=== PATIENT | female | born 1990 | race Caucasian/White ===

== ENCOUNTER 2017-01-24 18:43 | Emergency (ER) | payer OTHER ==
[2017-01-24] MEDS ORDERED: SODIUM CHLORIDE 0.9% 1,000 ML IV ONE (19:01)
--- NOTE | 2017-01-24 19:36 | ED ---
Female Urogenital HPI - General Chief complaint: Vaginal Bleeding Stated complaint: possible miscarriage Time Seen by Provider: 01/24/17 19:01 Source: patient Mode of arrival: ambulatory Limitations: no limitations - History of Present Illness Initial comments: Patient is a female who currently believes she is approximately 11 weeks , she presents to the emergency department this evening for sudden onset of vaginal bleeding. Patient reports that she believes she is approximately 11 weeks , she has been unable to establish any OB care during this . She has not had an ultrasound yet. 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 Patient reports that this cramping persisted throughout the afternoon despite sitting and resting for the rest of her work day. She came home and took a warm bath which improved some of the cramping shortly after bathing she developed vaginal bleeding. Patient reports she has had persistent vaginal bleeding since approximately 5:30 PM this evening. She has not passed any clots or products of conception. Patient does report that she had a single miscarriage in her first , she believes she was approximately 6 weeks at that time. She did not require D&C. She subsequently had a healthy and delivered vaginally at full term. She does report that she had extensive tearing requiring internal and external suturing without delivery. - Related Data Home Medications Medication Instructions Recorded Confirmed Vit No.124/Iron/Folic 1 tab PO DAILY 10/30/14 01/24/17 [ Vitamin Tablet] Allergies Allergy/AdvReac Type Severity Reaction Status Date / Time No Known Allergies Allergy Verified 01/24/17 19:09 Review of Systems ROS Statement: Those systems with pertinent positive or pertinent negative responses have been documented in the HPI. ROS Other: All systems not noted in ROS Statement are negative. Constitutional: Denies: fever, chills Respiratory: Denies: cough, dyspnea Cardiovascular: Denies: chest pain, palpitations Endocrine: Denies: fatigue Gastrointestinal: Denies: nausea, vomiting Genitourinary: Reports: abnormal menses, other (SUPRAPUBIC CRAMPING, VAGINAL BLEEDING). Denies: urgency, dysuria Musculoskeletal: Denies: back pain Skin: Denies: rash, lesions Neurological: Denies: headache, weakness Psychiatric: Reports: anxiety (anxious about possible miscarriage) Past Medical History Past Medical History: No Reported History History of Any Multi-Drug Resistant Organisms: None Reported Past Surgical History: Appendectomy Past Anesthesia/Blood Transfusion Reactions: No Reported Reaction Past Psychological History: No Psychological Hx Reported Smoking Status: Never smoker Past Alcohol Use History: None Reported Past Drug Use History: None Reported - Past Family History Mother Family Medical History: Hypertension General Exam Limitations: no limitations General appearance: alert, anxious Head exam: Present: atraumatic, normocephalic, normal inspection Eye exam: Present: normal appearance, PERRL, EOMI. Absent: scleral icterus, conjunctival injection, periorbital swelling ENT exam: Present: normal exam Neck exam: Present: normal inspection Respiratory exam: Present: normal lung sounds bilaterally. Absent: respiratory distress Cardiovascular Exam: Present: regular rate, normal rhythm GI/Abdominal exam: Present: soft. Absent: distended, tenderness, guarding, rebound, rigid Rectal exam: Present: deferred External exam: Present: normal external exam Speculum exam: Present: vaginal bleeding. Absent: vaginal discharge, cervical discharge, tissue, laceration By manual exam: Present: uterine enlargement. Absent: cervical motion tenderness Extremities exam: Present: normal inspection, full ROM, normal capillary refill. Absent: tenderness, pedal edema, joint swelling, calf tenderness Back exam: Present: normal inspection Neurological exam: Present: alert, oriented X3 Psychiatric exam: Present: anxious Skin exam: Present: warm, dry Course Vital Signs 01/24/17 18:49 Temperature 98.5 F Pulse Rate 84 Respiratory 17 Rate Blood Pressure 131/60 O2 Sat by Pulse 100 Oximetry Medical Decision Making - Medical Decision Making Patient was seen and evaluated Vital signs were reviewed History is obtained from the patient Pelvic exam reveals trickling of dark blood with no clots from the cervical os. Cervical os is closed. There is scarring on the cervix consistent with patient's history of requiring extensive repair after vaginal delivery. Labs reveal a hemoglobin of 12.2, blood type is A+ there is no indication for RhoGAM ultrasound reveals a single intrauterine to station at approximately 8 weeks and 4 days, a heart rate of 181 is noted Labs and ultrasound results were discussed with the patient. Patient reports that she has had no further bleeding since the pelvic exam. She reports that her cramping is completely subsided. Patient reports feeling definitely improved after being reassured by her ultrasound. All questions pertaining to care were answered to the best of my ability, patient was advised that bleeding in early does increase the risk of miscarriage however identification of a heart rate is 80 reassuring sign. Patient expressed relief and stated that she will follow up with OB before the end of the week. Patient was advised to return the emergency Department should she develop any worsening crampy abdominal pain or vaginal bleeding. All should she expresses any vaginal bleeding that fills greater than one pad per hour, is associated with any lightheadedness, shortness breath chest pain appealing pale or any signs or symptoms she finds concerning. Patient mother bedside expressed understanding and agreement with the plan for discharge home. - Lab Data Result diagrams: 01/24/17 19:53 Lab Results 01/24/17 01/24/17 01/24/17 Range/Units 19:53 19:53 19:53 WBC 12.1 H (3.8-10.6) k/uL RBC 4.07 (3.80-5.40) m/uL Hgb 12.6 (11.4-16.0) gm/dL Hct 36.1 (34.0-46.0) % MCV 88.6 (80.0-100.0) fL MCH 30.9 (25.0-35.0) pg MCHC 34.9 (31.0-37.0) g/dL RDW 13.0 (11.5-15.5) % Plt Count 267 (150-450) k/uL Neutrophils % 67 % Lymphocytes % 26 % Monocytes % 4 % Eosinophils % 1 % Basophils % 1 % Neutrophils # 8.1 H (1.3-7.7) k/uL Lymphocytes # 3.2 (1.0-4.8) k/uL Monocytes # 0.5 (0-1.0) k/uL Eosinophils # 0.2 (0-0.7) k/uL Basophils # 0.1 (0-0.2) k/uL Urine Color Yellow Urine Appearance Cloudy H (Clear) Urine pH 6.0 (5.0-8.0) Ur Specific [place] 1.002 (1.001-1.035) Urine Protein 1+ H (Negative) Urine Glucose (UA) Negative (Negative) Urine Ketones Negative (Negative) Urine Blood Large H (Negative) Urine Nitrite Negative (Negative) Urine Bilirubin Negative (Negative) Urine Urobilinogen <2.0 (<2.0) mg/dL Ur Leukocyte Esterase Negative (Negative) Urine RBC 60 H (0-5) /hpf Urine WBC 4 (0-5) /hpf Ur Squamous Epith Cells 1 (0-4) /hpf Amorphous Sediment Occasional H (None) /hpf Blood Type A Positive Blood Type Recheck No Disposition Clinical Impression: Threatened miscarriage in early Disposition: HOME SELF-CARE Condition: Good Instructions: Threatened Miscarriage (ED) Referrals: Melita John MD [Primary Care Provider] - 1-2 days Time of Disposition: 20:42
[2017-01-24 20:03] LABS: Basophils # (A) 0.1 k/uL (0-0.2); Basophils % (A) 1 %; CH 32.1; CHCM 36.4; Eosinophils # (A) 0.2 k/uL (0-0.7); Eosinophils % (A) 1 %; HCT 36.1 % (34.0-46.0); HDW 2.31; HGB 12.6 gm/dL (11.4-16.0); Luc # (Auto) 0.11; Luc % (Auto) 1; Lymphocytes # (A) 3.2 k/uL (1.0-4.8); Lymphocytes % (A) 26 %; MCH 30.9 pg (25.0-35.0); MCHC 34.9 g/dL (31.0-37.0); MCV 88.6 fL (80.0-100.0); Mean Platelet Volume 8.3; Monocytes # (A) 0.5 k/uL (0-1.0); Monocytes % (A) 4 %; Neutrophils # (A) 8.1 k/uL (1.3-7.7); Neutrophils % (A) 67 %; RBC 4.07 m/uL (3.80-5.40); WBC 12.1 k/uL (3.8-10.6); WBC (Perox) 13.08
[2017-01-24 20:06] LABS: Amorphous Sediment,Urine Occasional /hpf; Appearance,Urine Cloudy (Clear); Bilirubin,Urine Negative (Negative); Glucose,Urine (UA) Negative (Negative); Ketones,Urine Negative (Negative); Leukocyte Esterase,Urine Negative (Negative); Nitrite,Urine Negative (Negative); Particle Count 6638; Protein,Urine 1+ (Negative); RBC,Urine 60 /hpf (0-5); Specific Gravity,Urine 1.002 (1.001-1.035); Squamous Epithelial Cell,Urine 1 /hpf (0-4); UA Billing (MACRO vs. MICRO) MICRO; Urobilinogen,Urine <2.0 mg/dL (<2.0); WBC,Urine 4 /hpf (0-5)
--- NOTE | 2017-01-24 20:25 | US ---
EXAMINATION TYPE: US OB <= 14 wk fetus DATE OF EXAM: 01/24/2017 COMPARISON: NONE CLINICAL HISTORY: pain. Bleeding x 2 hours EXAM PERFORMED: Transabdominal (TA) EXAM MEASUREMENTS: GESTATIONAL AGE / DATING Physician Established: Not established Dates by LMP Unknown Dates by First Scan: This is first scan Dates by Current Scan for: (8 weeks/4 days) EDC: 09/01/2017 MATERNAL ANATOMY Uterus: 11.8 x 6.9 x 8.1 cml Right Ovary: 2.8 x 2.2 x 2.7 cm Post CDS / Adnexa: wnl Presence of free fluid: no Presence of corpus luteal cyst: no Presence of subchorionic bleed: no GESTATION / SURVEY CRL: 1.87cm (8 weeks/3 days) MSD: 3.4cm (8 weeks/4 days) Yolk Sac (normal less than 6mm): 0.46cm Heart Rate: 181 bpm Rhythm: Normal IUP: Viable IUP Date of LMP: Unknown Beta HcG (if available): Not available IMPRESSION: Viable IUP 8 wks 4 days ABI 09/01/2017 heart rate 181BPM
[2017-01-24 21:08] VITALS: BP 127/58; PULSE 86; RESP 18; TEMP 98.9
== END 2017-01-24 21:08 | disposition home or self-care (01) ==
LOC: EC 18:43
DX: O20.0 Threatened abortion (principal); Z90.49 Acquired absence of other specified parts of digestive tract; Z3A.08 8 weeks gestation of pregnancy; Z79.899 Other long term (current) drug therapy
CPT/HCPCS: 36415; 76801; 81001; 84702; 85025; 86900; 86901; 87086; 96360; 99284

== ENCOUNTER 2017-07-23 09:00 | Inpatient (IN) | payer BC ==
--- NOTE | 2017-07-23 09:20 | P.HPOB ---
History of Present Illness H&P Date: 07/23/17 Chief Complaint: IUP at 35-0/7 weeks, spontaneous rupture of membranes This is a very pleasant 26-year-old 3 para 1011 at 35-0/7 weeks with an estimated date of confinement of 422 that presents with spontaneous rupture of membranes. Patient states her water broke around 7 AM clear in nature. Patient has been milton irregularly throughout the last 2 weeks negative fibronectin was obtained due to these contractions and was negative in nature. She notes good movement and denies vaginal bleeding. On blood work she had a blood type of a positive, rubella immune, RPR nonreactive, hepatitis B surface antigen negative, HIV negative, GBS unknown. She did pass her GBS. Review of Systems Constitutional: Denies chills, Denies fatigue, Denies fever Respiratory: Denies cough, Denies dyspnea Gastrointestinal: Denies constipation, Denies diarrhea Genitourinary: Reports Past Medical History Past Medical History: No Reported History History of Any Multi-Drug Resistant Organisms: None Reported Past Surgical History: Appendectomy Past Anesthesia/Blood Transfusion Reactions: No Reported Reaction Past Psychological History: No Psychological Hx Reported Smoking Status: Never smoker Past Alcohol Use History: None Reported Past Drug Use History: None Reported - Past Family History Mother Family Medical History: Hypertension Medications and Allergies Home Medications Medication Instructions Recorded Confirmed Type Vit No.124/Iron/Folic 1 tab PO DAILY 10/30/14 01/24/17 History [ Vitamin Tablet] Allergies Allergy/AdvReac Type Severity Reaction Status Date / Time No Known Allergies Allergy Verified 01/24/17 19:09 Exam Osteopathic Statement: *. No significant issues noted on an osteopathic structural exam other than those noted in the History and Physical/Consult. - OBG Physical Exam Abdomen: Gravid uterus appropriate for gestational age Cervix: 3/50/-2 station, grossly ruptured with clear fluid Uterus: enlarged Assessment and Plan (1) premature rupture of membranes (PPROM) with onset of labor within 24 hours of rupture in third trimester, antepartum Current Visit: Yes Status: Acute Code(s): O42.013 - PRETRM PATRICA ROM, ONSET LABOR W/N 24 HOURS OF RUPT, THIRD TRI SNOMED Code(s): 13465546673544299 (2) GBS screening not performed Current Visit: Yes Status: Acute Code(s): LXW6185 - SNOMED Code(s): 584471333 Plan: Will admit to labor and delivery, IV antibiotic's for gestational age Will expectantly manage this patient for now just augmentation of labor may be needed in the near future. Plan was discussed with patient she understands and questions are answered. Gestational age is discussed with the patient and the patient's in the possible need for special care nursery. They stated understanding
[2017-07-23] MEDS ORDERED: TERBUTALINE 1 MG/ML VIAL SQ PRN (09:21)
[2017-07-23] MEDS ORDERED: AMPICILLIN 2,000 MG in SODIUM CHLORIDE 0.9% 100 ML IVPB STA (09:21)
[2017-07-23] MEDS ORDERED: OXYTOCIN 10 UNIT/ML 1 ML VIAL IM PRN (09:21)
[2017-07-23] MEDS ORDERED: CARBOPROST TROMETHAMINE 250 MCG/ML 1 ML AMP IM PRN (09:21)
[2017-07-23] MEDS ORDERED: LIDOCAINE 1% (PF) 10 MG/ML (30 ML SDV) SQ PRN (09:21)
[2017-07-23] MEDS ORDERED: METHYLERGONOVINE 0.2 MG/ML 1 ML AMP IM PRN (09:21)
[2017-07-23 09:27] VITALS: BMI 32.8
[2017-07-23] MEDS: LACTATED RINGERS 1,000 ML IV SCH ×2 (09:43→14:30)
[2017-07-23 10:14] LABS: Basophils # (A) 0.1 k/uL (0-0.2); Basophils % (A) 0 %; Eosinophils # (A) 0.2 k/uL (0-0.7); Eosinophils % (A) 1 %; HCT 35.6 % (34.0-46.0); Hyperchromasia Slight; Lymphocytes # (A) 2.9 k/uL (1.0-4.8); Lymphocytes % (A) 20 %; MCH 31.2 pg (25.0-35.0); MCHC 36.4 g/dL (31.0-37.0); MCV 85.6 fL (80.0-100.0); Mean Platelet Volume 7.7; Monocytes # (A) 0.5 k/uL (0-1.0); Monocytes % (A) 3 %; Neutrophils # (A) 10.9 k/uL (1.3-7.7); Neutrophils % (A) 74 %; Platelet Count 301 k/uL (150-450); RBC 4.16 m/uL (3.80-5.40); RDW 13.4 % (11.5-15.5); WBC 14.7 k/uL (3.8-10.6)
[2017-07-23] MEDS ORDERED: OXYTOCIN 20 UNITS/1000 ML NS 1,000 ML IV SCH ×2 (12:30→17:15)
[2017-07-23] MEDS ORDERED: AMPICILLIN 1,000 MG in SODIUM CHLORIDE 0.9% 50 ML IVPB SCH (13:21)
[2017-07-23] MEDS ORDERED: fentaNYL (PF) 50 MCG/ML 5 ML AMP ONE (15:17)
[2017-07-23] MEDS ORDERED: SODIUM CHLORIDE 0.9% 100 ML BAG ONE (15:17)
[2017-07-23] MEDS ORDERED: BUPIVACAINE (PF) 0.25% 30 ML VIAL ONE (15:17)
[2017-07-23] MEDS ORDERED: BUPIVACAINE (PF) 0.25% 25 ML, fentaNYL (PF) 200 MCG in SODIUM CHLORIDE 0.9% 71 ML EPIDURAL ONE (15:38)
[2017-07-23] MEDS ORDERED: HYDROCORTISONE 2.5% RECTAL CREAM 30 GM TUBE RECTAL PRN (17:09)
[2017-07-23] MEDS ORDERED: LANOLIN CREAM 5 GM TUBE TOPICAL PRN (17:09)
[2017-07-23] MEDS ORDERED: diphenhydrAMINE 50 MG CAP PO PRN (17:09)
[2017-07-23] MEDS ORDERED: SIMETHICONE 80 MG CHEWABLE PO PRN (17:09)
[2017-07-23] MEDS ORDERED: WITCH HAZEL 1 EACH MED..PAD TOPICAL PRN (17:09)
[2017-07-23] MEDS ORDERED: diphenhydrAMINE 25 MG CAP PO PRN (17:09)
[2017-07-23] MEDS ORDERED: IBUPROFEN 600 MG TAB PO PRN (17:09)
[2017-07-23] MEDS ORDERED: Acetaminophen-Codeine 300-30mg TAB PO PRN ×2 (17:09)
[2017-07-23] MEDS ORDERED: BENZOCAINE/MENTHOL SPRAY 1 GM/SPRAY AEROSOL TOPICAL PRN (17:09)
[2017-07-23] MEDS ORDERED: diphenhydrAMINE 50 MG/ML 1 ML VIAL IVP PRN ×2 (17:09)
--- NOTE | 2017-07-23 17:09 | P.PROBDLV ---
Vaginal Delivery Note - . Vaginal Delivery Note: This is a 26-year-old 3 para 1011 at 35-0/7 weeks that presented earlier with premature rupture of membranes, clear in nature. Patient progressed slowly through labor eventually needing Pitocin augmentation of labor. Patient eventually requested an epidural became complete and started pushing. Next Patient was noted to be complete, began pushing the head was then delivered, followed by the anterior shoulder followed by gentle upward traction to deliver the posterior shoulder the was then delivered and placed on the mammogram's abdomen. The cord was then doubly clamped and cut after a two- minute delayed cord clamp. girl was delivered at 1643, weight of 5 lbs. 15 oz, Apgars of 9 and 9 at one and 5 minutes respectively. The placenta was then delivered spontaneously intact with three-vessel cord. Afterwards the vaginal vault was inspected a small vaginal first-degree laceration was noted this was then injected with lidocaine and closed with 3-0 Rapide in the usual fashion. She did sustain bilateral labial lacerations that were hemostatic and no need for repair. Estimated blood loss was noted to be 200cc. Mother and infant were stable after delivery. was noted to be slightly grunting after delivery therefore she was taken to the nursery for observation.
[2017-07-23] MEDS: SENNOSIDES-DOCUSATE SODIUM 1 EACH TAB PO SCH (20:00)
[2017-07-23 21:00] VITALS: RESP 16
[2017-07-23] MEDS: ACETAMINOPHEN TAB 325 MG TAB PO PRN (22:46)
--- NOTE | 2017-07-24 08:16 | P.DS ---
Providers Date of admission: 07/23/17 09:00 Expected date of discharge: 07/24/17 Attending physician: Coby Veras Primary care physician: Stated None - Discharge Diagnosis(es) (1) premature rupture of membranes (PPROM) with onset of labor within 24 hours of rupture in third trimester, antepartum Current Visit: Yes Status: Acute (2) GBS screening not performed Current Visit: Yes Status: Acute (3) Vaginal delivery Current Visit: Yes Status: Acute Hospital Course: This is a very pleasant 26-year-old 3 para 1011 that presented to labor and delivery on 07/23 with complaints of rupture of membranes. Patient was confirmed to be spontaneously ruptured with clear fluid. She is 35-0/7 weeks with an estimated date of confinement of 08/27/2017. She made slow change through labor eventually Pitocin augmentation of labor was begun and she received an epidural for analgesia. She progressed to complete and had a spontaneous vaginal delivery of a viable female at 1643, weight of 5 lbs. 15 oz., Apgars of 9 and 9 at one and 5 minutes respectively. Patient's course has been uneventful. She is ambulating and voiding without difficulty. She is denying concerns. Her lochia is moderate today. She is attempting breast-feeding but with the infant being in special care nursery she is struggling at this time. Patient Condition at Discharge: Good Plan - Discharge Summary Discharge Rx Participant: Yes Follow up Appointment(s)/Referral(s): Coby Veras DO [Doctor of Osteopathic Medicine] - 4 Weeks Patient Instructions/Handouts: Vaginal Delivery (DC) Activity/Diet/Wound Care/Special Instructions: No intercourse or tub baths for 6 total weeks post . She does request an IUD I did discuss with her this will be placed at 8-10 weeks and she should abstain from intercourse until that time. Discharge Disposition: HOME SELF-CARE
[2017-07-24] MEDS: ACETAMINOPHEN TAB 325 MG TAB PO PRN (08:28)
[2017-07-24] MEDS: SENNOSIDES-DOCUSATE SODIUM 1 EACH TAB PO SCH (08:28)
[2017-07-24 08:59] VITALS: BP 129/76; PULSE 73; TEMP 97.5
== END 2017-07-24 14:30 | disposition home or self-care (01) | DRG 775 ==
LOC: 4FBP 09:00
PROVIDERS: ADMIT Obstetrics & Gynecology Obstetrics; ATTEND Obstetrics & Gynecology Obstetrics
PROC: 10E0XZZ Delivery of Products of Conception, External Approach (ICD-10-PCS; principal; 2017-07-23)
PROC: 3E0R3NZ Introduction of Analgesics, Hypnotics, Sedatives into Spinal Canal, Percutaneous Approach (ICD-10-PCS; principal; 2017-07-23)
PROC: 00HU33Z Insertion of Infusion Device into Spinal Canal, Percutaneous Approach (ICD-10-PCS; principal; 2017-07-23)
PROC: 0HQ9XZZ Repair Perineum Skin, External Approach (ICD-10-PCS; principal; 2017-07-23)
DX: O42.019 Preterm premature rupture of membranes, onset of labor within 24 hours of rupture, unspecified trimester (principal); O70.0 First degree perineal laceration during delivery; Z37.0 Single live birth; Z3A.35 35 weeks gestation of pregnancy
CPT/HCPCS: 85025; 86850; 86900; 86901; 88307

== ENCOUNTER → 2018-05-03 | Outpatient (CLI) | payer OTHER ==
--- NOTE | 2018-05-03 08:34 | US ---
EXAMINATION TYPE: US abdomen complete DATE OF EXAM: 05/03/2018 COMPARISON: NONE CLINICAL HISTORY: R10.11 Right Upper Quad Pain. RUQ pain, indigestion, history of gallstones EXAM MEASUREMENTS: Liver Length: 13.4 cm Gallbladder Wall: 0.5 cm CBD: 0.4 cm Spleen: 10.4 cm Right Kidney: 11.5 x 4.5 x 5.5 cm Left Kidney: 11.2 x 5.4 x 5.2 cm Technical limitations due to large amount of overlying bowel content Pancreas: Tail obscured by overlying bowel gas Liver: wnl Gallbladder: sludge with multiple stones noted, thickened GB wall Evidence for sonographic Veras's sign: no CBD: wnl Spleen: appears wnl Right Kidney: no evidence of hydronephrosis Left Kidney: no evidence of hydronephrosis Upper IVC: wnl Abd Aorta: wnl The liver is homogenous. The intrahepatic portion of the IVC and proximal abdominal aorta are within normal limits. Common bile duct is unremarkable. The visualized portions of the pancreas are homog enous. The spleen is unremarkable. Kidneys are symmetric and free of hydronephrosis. No renal lesi ons are seen. IMPRESSION: 1. Gallbladder sludge. 2. Gallbladder wall thickening. Common bile duct is of normal caliber.
== END | disposition home or self-care (01) ==
LOC: RADUSWWP 07:34
PROVIDERS: ATTEND Internal Medicine
DX: K82.8 Other specified diseases of gallbladder (principal)
CPT/HCPCS: 76700

== ENCOUNTER 2018-05-09 03:22 | Inpatient (IN) | payer OTHER ==
[2018-05-09] MEDS ORDERED: SODIUM CHLORIDE 0.9% 1,000 ML IV STA (04:40)
[2018-05-09] MEDS ORDERED: HYDROmorphone 0.5 MG/0.5 ML SYRINGE IVP STA (04:40)
[2018-05-09] MEDS ORDERED: ONDANSETRON 4 MG/2 ML VIAL IVP STA (04:40)
--- NOTE | 2018-05-09 04:44 | ED ---
Nausea/Vomiting/Diarrhea HPI - General Chief complaint: Nausea/Vomiting/Diarrhea Stated complaint: vomiting Time Seen by Provider: 05/09/18 04:31 Source: patient Mode of arrival: ambulatory Limitations: no limitations - History of Present Illness Initial comments: This patient is 27-year-old woman who presents to have evaluation for right upper quadrant abdominal pain, nausea and vomiting. The patient states she has been having right upper quadrant pains going back number weeks, and that she has had number of tests including ultrasound that showed reported thickening of the gallbladder wall, gallstones and sludge. The patient states that she is scheduled to see Dr. Eid, about possible gallbladder surgery. The patient states that last evening she had eaten some oatmeal and then shortly after that started having nausea, vomiting, abdominal pain. She states that she was not able to manage at home. She did try taking Tylenol and. She is not having any relief. She indicates pain is right upper quadrant, radiates to the back. It is constant and severe. She has not noted any relieving factors. It is worse if she presses there. MD complaint: nausea, vomiting, abdominal pain Onset/Timin -: hour(s) Description of Vomiting: food contents Associated Abdominal Pain: Yes Location: RUQ Radiation: other (Back) Severity: severe Quality: sharp Consistency: constant Improves with: none Worsens with: none Associated Symptoms: nausea/vomiting - Related Data Home Medications Medication Instructions Recorded Confirmed Acetaminophen [Tylenol] 500 mg PO Q4-6H PRN 05/09/18 05/09/18 Ibuprofen [Motrin] 600 mg PO Q8HR PRN 05/09/18 05/09/18 Allergies Allergy/AdvReac Type Severity Reaction Status Date / Time No Known Allergies Allergy Verified 05/09/18 07:44 Review of Systems ROS Statement: Those systems with pertinent positive or pertinent negative responses have been documented in the HPI. ROS Other: All systems not noted in ROS Statement are negative. Constitutional: Denies: fever, chills Respiratory: Denies: cough, dyspnea Cardiovascular: Denies: chest pain, palpitations, syncope Gastrointestinal: Reports: abdominal pain, nausea, vomiting. Denies: diarrhea, constipation Genitourinary: Denies: dysuria, hematuria, abnormal menses Musculoskeletal: Denies: back pain Skin: Denies: rash Neurological: Denies: headache Past Medical History Past Medical History: No Reported History History of Any Multi-Drug Resistant Organisms: None Reported Past Surgical History: Appendectomy Past Anesthesia/Blood Transfusion Reactions: No Reported Reaction Past Psychological History: No Psychological Hx Reported Smoking Status: Never smoker Past Alcohol Use History: None Reported Past Drug Use History: None Reported - Past Family History Mother Family Medical History: Hypertension General Exam Limitations: no limitations General appearance: alert, in no apparent distress Head exam: Present: atraumatic, normocephalic Eye exam: Present: normal appearance. Absent: scleral icterus, conjunctival injection ENT exam: Present: normal oropharynx Neck exam: Present: normal inspection Respiratory exam: Present: normal lung sounds bilaterally. Absent: respiratory distress, wheezes, rales, rhonchi, stridor Cardiovascular Exam: Present: regular rate, normal rhythm, normal heart sounds. Absent: systolic murmur, diastolic murmur, rubs, gallop GI/Abdominal exam: Present: soft, tenderness (Upper quadrant), guarding, hypoactive bowel sounds. Absent: distended, rebound, rigid, mass, pulsatile mass, hernia Extremities exam: Present: normal inspection, normal capillary refill. Absent: pedal edema, calf tenderness Back exam: Present: normal inspection. Absent: CVA tenderness (R), CVA tenderness (L) Neurological exam: Present: alert Skin exam: Present: warm, dry, intact, normal color. Absent: rash Course Vital Signs 05/09/18 03:43 Temperature 98.4 F Pulse Rate 59 L Respiratory 18 Rate Blood Pressure 121/75 O2 Sat by Pulse 100 Oximetry Medical Decision Making - Medical Decision Making Patient is 27-year-old woman who has been having intermittent biliary colic symptoms for some time now. Her outpatient ultrasound did show evidence of gallbladder disease, including a thickened wall, stones and sludge. She has lost far not seen a surgeon. Given the recurrence of symptoms, case discussed with surgery will admit the patient for symptom management and possible cholecystectomy. - Lab Data Result diagrams: 05/09/18 04:50 05/09/18 04:50 Lab Results 05/09/18 05/09/18 Range/Units 04:50 04:50 WBC 14.7 H (3.8-10.6) k/uL RBC 4.63 (3.80-5.40) m/uL Hgb 14.0 (11.4-16.0) gm/dL Hct 40.9 (34.0-46.0) % MCV 88.5 (80.0-100.0) fL MCH 30.3 (25.0-35.0) pg MCHC 34.2 (31.0-37.0) g/dL RDW 12.3 (11.5-15.5) % Plt Count 211 (150-450) k/uL Neutrophils % 89 % Lymphocytes % 8 % Monocytes % 2 % Eosinophils % 0 % Basophils % 0 % Neutrophils # 13.1 H (1.3-7.7) k/uL Lymphocytes # 1.2 (1.0-4.8) k/uL Monocytes # 0.3 (0-1.0) k/uL Eosinophils # 0.0 (0-0.7) k/uL Basophils # 0.0 (0-0.2) k/uL Sodium 140 (137-145) mmol/L Potassium 4.3 (3.5-5.1) mmol/L Chloride 107 (98-107) mmol/L Carbon Dioxide 25 (22-30) mmol/L Anion Gap 8 mmol/L BUN 13 (7-17) mg/dL Creatinine 0.51 L (0.52-1.04) mg/dL Est GFR (CKD-EPI)AfAm >90 (>60 ml/min/1.73 sqM) Est GFR (CKD-EPI)NonAf >90 (>60 ml/min/1.73 sqM) Glucose 131 H (74-99) mg/dL Calcium 9.4 (8.4-10.2) mg/dL Total Bilirubin 0.4 (0.2-1.3) mg/dL AST 21 (14-36) U/L ALT 25 (9-52) U/L Alkaline Phosphatase 41 (38-126) U/L Total Protein 7.3 (6.3-8.2) g/dL Albumin 4.7 (3.5-5.0) g/dL Amylase <30 L (30-110) U/L Lipase 43 (23-300) U/L Disposition Clinical Impression: Symptomatic cholelithiasis, Abdominal pain Disposition: ADMITTED IP TO THIS [facility] Condition: Fair
[2018-05-09 05:02] LABS: Basophils % (A) 0 %; Eosinophils % (A) 0 %; HCT 40.9 % (34.0-46.0); Lymphocytes # (A) 1.2 k/uL (1.0-4.8); Lymphocytes % (A) 8 %; MCH 30.3 pg (25.0-35.0); MCHC 34.2 g/dL (31.0-37.0); MCV 88.5 fL (80.0-100.0); Mean Platelet Volume 8.1; Monocytes # (A) 0.3 k/uL (0-1.0); Monocytes % (A) 2 %; Neutrophils # (A) 13.1 k/uL (1.3-7.7); Neutrophils % (A) 89 %; Platelet Count 211 k/uL (150-450); RBC 4.63 m/uL (3.80-5.40); RDW 12.3 % (11.5-15.5); WBC 14.7 k/uL (3.8-10.6)
[2018-05-09 05:13] LABS: ALT 25 U/L (9-52); AST 21 U/L (14-36); Albumin 4.7 g/dL (3.5-5.0); Alkaline Phosphatase 41 U/L (38-126); Anion Gap 8 mmol/L; Blood Urea Nitrogen 13 mg/dL (7-17); Calcium 9.4 mg/dL (8.4-10.2); Carbon Dioxide 25 mmol/L (22-30); Chloride 107 mmol/L (98-107); Glucose 131 mg/dL (74-99); Lipase 43 U/L (23-300); Potassium 4.3 mmol/L (3.5-5.1); Sodium 140 mmol/L (137-145); Total Bilirubin 0.4 mg/dL (0.2-1.3); Total Protein 7.3 g/dL (6.3-8.2)
[2018-05-09 05:16] LABS: Amylase <30 U/L (30-110)
[2018-05-09] MEDS ORDERED: HYDROmorphone 0.5 MG/0.5 ML SYRINGE IVP PRN ×2 (06:33→19:02)
[2018-05-09] MEDS ORDERED: NALOXONE 0.4 MG/ML 1 ML VIAL IV PRN (06:33)
[2018-05-09] MEDS ORDERED: ONDANSETRON 4 MG/2 ML VIAL IVP PRN (06:33)
[2018-05-09] MEDS ORDERED: PIPERACILLIN-TAZOBACTAM 3.375 GM in SODIUM CHLORIDE 0.9% 100 ML IVPB STA (06:35)
[2018-05-09 08:30] LABS: Appearance,Urine Clear (Clear); Bilirubin,Urine Negative (Negative); Blood,Urine Negative (Negative); Color,Urine Yellow; Glucose,Urine (UA) Negative (Negative); Ketones,Urine 2+ (Negative); Leukocyte Esterase,Urine Negative (Negative); Nitrite,Urine Negative (Negative); PH, Urine 7.5 (5.0-8.0); Protein,Urine Negative (Negative); Specific Gravity,Urine 1.014 (1.001-1.035)
[2018-05-09] MEDS: PANTOPRAZOLE 40 MG/10 ML VIAL IV SCH (10:19)
[2018-05-09 10:25] VITALS: BMI 30.2
[2018-05-09] MEDS ORDERED: HYDROmorphone 1 MG/ML 1 ML SYRINGE IVP PRN (10:47)
--- NOTE | 2018-05-09 10:52 | P.GSHP ---
History of Present Illness H&P Date: 05/09/18 The patient's a 27-year-old female who presented with worsening right upper quadrant pain. She had had some gallbladder colic when she was 2 years ago. Around she began to have recurrent pain daily. She had ultrasound done on May 03 showing sludge, gallstones and some thickening of the gallbladder wall. Denies jaundice, acholic stool, blood in the stool or dark tarry stool. Denies fevers or chills. Yesterday evening she had some oatmeal and started developing severe nausea and vomiting afterwards along with pain. The pain is persisting in the right upper quadrant radiating through to the back. She's getting 0.5 mg of Dilaudid which "takes the edge off "but doesn't totally relieve the pain - Review of Systems All systems: negative Past Medical History Past Medical History: No Reported History History of Any Multi-Drug Resistant Organisms: None Reported Past Surgical History: Appendectomy Past Anesthesia/Blood Transfusion Reactions: No Reported Reaction Past Psychological History: No Psychological Hx Reported Smoking Status: Current every day smoker Past Alcohol Use History: None Reported Past Drug Use History: None Reported - Past Family History Mother Family Medical History: Hypertension Medications and Allergies Home Medications Medication Instructions Recorded Confirmed Type Acetaminophen [Tylenol] 500 mg PO Q4-6H PRN 05/09/18 05/09/18 History Ibuprofen [Motrin] 600 mg PO Q8HR PRN 05/09/18 05/09/18 History Allergies Allergy/AdvReac Type Severity Reaction Status Date / Time No Known Allergies Allergy Verified 05/09/18 07:44 Surgical - Exam Osteopathic Statement: *. No significant issues noted on an osteopathic structural exam other than those noted in the History and Physical/Consult. Vital Signs Temp Pulse Resp BP Pulse Ox 98.4 F 59 L 18 121/75 100 05/09/18 03:43 05/09/18 03:43 05/09/18 03:43 05/09/18 03:43 05/09/18 03:43 - General Appears uncomfortable well developed, well nourished - Eyes normal ocular movement - ENT normal mucosa - Neck trachea midline - Respiratory normal respiratory effort, clear to auscultation - Cardiovascular Rhythm: regular - Abdomen Abdomen: soft, tender (Right upper quadrant), guarding (Voluntary), no rebound, no distended Hernia: no umbilical - Psychiatric oriented to time, oriented to person, oriented to place, speech is normal, memory intact Results - Labs 05/09/18 04:50 05/09/18 04:50 Abnormal Lab Results - Last 24 Hours (Table) 05/09/18 05/09/18 05/09/18 Range/Units 04:50 04:50 07:35 WBC 14.7 H (3.8-10.6) k/uL Neutrophils # 13.1 H (1.3-7.7) k/uL Creatinine 0.51 L (0.52-1.04) mg/dL Glucose 131 H (74-99) mg/dL Amylase <30 L (30-110) U/L Urine Ketones 2+ H (Negative) Diabetes panel 05/09/18 Range/Units 04:50 Sodium 140 (137-145) mmol/L Potassium 4.3 (3.5-5.1) mmol/L Chloride 107 (98-107) mmol/L Carbon Dioxide 25 (22-30) mmol/L BUN 13 (7-17) mg/dL Creatinine 0.51 L (0.52-1.04) mg/dL Glucose 131 H (74-99) mg/dL Calcium 9.4 (8.4-10.2) mg/dL AST 21 (14-36) U/L ALT 25 (9-52) U/L Alkaline Phosphatase 41 (38-126) U/L Total Protein 7.3 (6.3-8.2) g/dL Albumin 4.7 (3.5-5.0) g/dL Calcium panel 05/09/18 Range/Units 04:50 Calcium 9.4 (8.4-10.2) mg/dL Albumin 4.7 (3.5-5.0) g/dL Pituitary panel 05/09/18 Range/Units 04:50 Sodium 140 (137-145) mmol/L Potassium 4.3 (3.5-5.1) mmol/L Chloride 107 (98-107) mmol/L Carbon Dioxide 25 (22-30) mmol/L BUN 13 (7-17) mg/dL Creatinine 0.51 L (0.52-1.04) mg/dL Glucose 131 H (74-99) mg/dL Calcium 9.4 (8.4-10.2) mg/dL Adrenal panel 05/09/18 Range/Units 04:50 Sodium 140 (137-145) mmol/L Potassium 4.3 (3.5-5.1) mmol/L Chloride 107 (98-107) mmol/L Carbon Dioxide 25 (22-30) mmol/L BUN 13 (7-17) mg/dL Creatinine 0.51 L (0.52-1.04) mg/dL Glucose 131 H (74-99) mg/dL Calcium 9.4 (8.4-10.2) mg/dL Total Bilirubin 0.4 (0.2-1.3) mg/dL AST 21 (14-36) U/L ALT 25 (9-52) U/L Alkaline Phosphatase 41 (38-126) U/L Total Protein 7.3 (6.3-8.2) g/dL Albumin 4.7 (3.5-5.0) g/dL Assessment and Plan (1) Cholecystitis Current Visit: Yes Status: Acute Code(s): K81.9 - CHOLECYSTITIS, UNSPECIFIED SNOMED Code(s): 46551727 (2) Symptomatic cholelithiasis Current Visit: Yes Status: Acute Code(s): K80.20 - CALCULUS OF GALLBLADDER W /O CHOLECYSTITIS W/O OBSTRUCTION SNOMED Code(s): 788176638 Plan: She is still having significant abdominal pain which is probably on the basis of a cystic duct obstruction. I recommended laparoscopic cholecystectomy possible open. The procedure risks and complications were discussed. Questions were encouraged and answered. We'll adjust her pain medication and proceed with surgery today.
[2018-05-09] MEDS: KETOROLAC 30 MG/ML 1 ML VIAL IVP SCH ×2 (12:45→18:05)
[2018-05-09] MEDS ORDERED: IV FLUID CONTINUATION 1,000 ML IV ONE (16:51)
[2018-05-09] MEDS ORDERED: NEOSTIGMINE 1 MG/ML 10 ML VIAL ONE (17:56)
[2018-05-09] MEDS ORDERED: PROPOFOL 10 MG/ML 20 ML VIAL IV ONE (17:56)
[2018-05-09] MEDS ORDERED: SUCCINYLCHOLINE CHLORIDE 100 MG/5 ML SYR IV ONE (17:56)
[2018-05-09] MEDS ORDERED: fentaNYL (PF) 50 MCG/ML 2 ML AMP ONE (17:56)
[2018-05-09] MEDS ORDERED: ePHEDrine SULFATE/0.9% NACL/PF 50 MG/5 ML SYRINGE IV ONE (17:56)
[2018-05-09] MEDS ORDERED: GLYCOPYRROLATE 0.2 MG/ML 2 ML VIAL ONE (17:56)
[2018-05-09] MEDS ORDERED: MIDAZOLAM 2 MG/2 ML VIAL ONE (17:56)
[2018-05-09] MEDS ORDERED: LIDOCAINE 1% INJ 10MG/ML (20 ML MDV) ONE (17:56)
[2018-05-09] MEDS ORDERED: LACTATED RINGERS 1,000 ML IV ONE (18:10)
[2018-05-09] MEDS ORDERED: BUPIVACAIN-EPI 0.25%-1:200,000 30 ML VIAL SQ ONE ×2 (18:14)
--- NOTE | 2018-05-09 19:00 | P.OP ---
Date of Procedure: 05/09/18 Preoperative Diagnosis: Cholelithiasis and cholecystitis Postoperative Diagnosis: Same Procedure(s) Performed: Laparoscopic cholecystectomy Anesthesia: PARVEEN Surgeon: Khadra García Estimated Blood Loss (ml): 50 Pathology: other (Gallbladder) Condition: stable Disposition: PACU Operative Findings: The patient had evidence of acute on chronic cholecystitis with edematous gallbladder with wall thickening and omental adhesions. Description of Procedure: The patient was taken the operative suite where she is prepped and draped in usual sterile manner under general endotracheal anesthetic. An infraumbilical incision was made an optical trochars placed in the abdominal cavity. Pneumoperitoneum was established with CO2 gas. Sites are chosen for accessory trochars needs are placed through small skin incisions. The abdominal and pelvic contents are examined with findings as described above. The fundus of the gallbladder is grasped and retracted towards the anterior abdominal wall. The omentum was peeled off the surface of the gallbladder. Webster's pouch is then I identified. Its grasped and retracted laterally. The cystic artery and cystic duct are dissected free. They're triply clipped and cut. The cystic duct stump was secured with 0 PDS Endoloop. The gallbladder is then dissected free from the liver bed using cautery. The gallbladder is placed into a specimen retrieval bag. The liver bed is reexamined and noted to be hemostatic. The excess irrigant is suctioned out. The pneumoperitoneum was released. The trochars were removed. The skin and fascia at the umbilicus was extended slightly to allow for removal of the gallbladder. The fascia at the umbilicus was closed with 0 Vicryl. The skin incisions were closed with 4-0 Vicryl in a subcuticular manner. Steri-Strips and dressings were applied. She tolerated the procedure without difficulty and was taken recovery room in satisfactory condition. According to or personnel, all counts are correct.
[2018-05-09] MEDS ORDERED: HYDROcodone/APAP 5-325MG 1 EACH TAB PO PRN ×2 (19:01)
[2018-05-09] MEDS: HYDROmorphone 1 MG/ML 1 ML SYRINGE IVP ONE ×2 (19:30→19:42)
[2018-05-09] MEDS ORDERED: ONDANSETRON 4 MG/2 ML VIAL IVP ONE (19:41)
[2018-05-10] MEDS: KETOROLAC 30 MG/ML 1 ML VIAL IVP SCH ×2 (00:14→06:29)
[2018-05-10 01:31] VITALS: RESP 16
[2018-05-10 07:43] VITALS: BP 112/72; PULSE 58; TEMP 98
[2018-05-10] MEDS: PANTOPRAZOLE 40 MG/10 ML VIAL IV SCH (09:15)
--- NOTE | 2018-05-10 10:31 | P.DS ---
Providers Date of admission: 05/09/18 06:39 Expected date of discharge: 05/10/18 Attending physician: Khadra García Primary care physician: Melita John - Discharge Diagnosis(es) (1) Cholecystitis Current Visit: Yes Status: Acute (2) Symptomatic cholelithiasis Current Visit: Yes Status: Acute Hospital Course: The patient presented with persistent pain since . An outpatient ultrasound was done on May 03 showing cholelithiasis and gallbladder wall thickening. The pain became significantly worse and she had nausea and vomitingSocially presented to the ER. She was evaluated and admitted. She was taken the OR where she is found to have acute on chronic cholecystitis with cholelithiasis. By postop day 1 she was feeling significantly better. The pain was resolved. No nausea or vomiting. She was tolerating a diet Patient Condition at Discharge: Good Plan - Discharge Summary Discharge Rx Participant: No New Discharge Prescriptions: New HYDROcodone/APAP 5-325MG [[place] 5-325] 1 - 2 tab PO Q6HR PRN #20 tab PRN Reason: Pain No Action Ibuprofen [Motrin] 600 mg PO Q8HR PRN PRN Reason: Pain Acetaminophen [Tylenol] 500 mg PO Q4-6H PRN PRN Reason: Pain Discharge Medication List Acetaminophen [Tylenol] 500 mg PO Q4-6H PRN 05/09/18 [History] Ibuprofen [Motrin] 600 mg PO Q8HR PRN 05/09/18 [History] HYDROcodone/APAP 5-325MG [[place] 5-325] 1 - 2 tab PO Q6HR PRN #20 tab 05/10/18 [ Rx] Follow up Appointment(s)/Referral(s): Melita John MD [Primary Care Provider] - 1-2 days Khadra García DO [Doctor of Osteopathic Medicine] - 2 Weeks Activity/Diet/Wound Care/Special Instructions: Keeps Band-Aids on until Monday. Then they may be removed and you may shower. No tub bath for 1 week. Low-fat diet. Expect some bruising by the bellybutton incision. Call if you develop fevers, chills, nausea, vomiting, concerns for wound infection Discharge Disposition: HOME SELF-CARE
== END 2018-05-10 11:56 | disposition home or self-care (01) | DRG 419 ==
LOC: EC 03:22 → 4SSUR 06:26 → OBSVTOIN 06:39
PROVIDERS: ADMIT Surgery; ATTEND Surgery
PROC: 0FT44ZZ Resection of Gallbladder, Percutaneous Endoscopic Approach (ICD-10-PCS; principal; 2018-05-09 19:40)
DX: K80.12 Calculus of gallbladder with acute and chronic cholecystitis without obstruction (principal); F17.210 Nicotine dependence, cigarettes, uncomplicated; Z90.49 Acquired absence of other specified parts of digestive tract; Z82.49 Family history of ischemic heart disease and other diseases of the circulatory system
CPT/HCPCS: 36415; 80053; 81003; 81025; 82150; 83690; 85025; 88304; 96361; 96365; 96375; 99285

== ENCOUNTER → 2023-12-08 | Outpatient (CLI) | payer BC ==
--- NOTE | 2023-12-08 15:41 | US ---
EXAMINATION TYPE: US transvaginal DATE OF EXAM: 12/08/2023 COMPARISON: NONE CLINICAL INDICATION: Female, 33 years old with history of N92.1 EXCESSIVE AND FREQUENT MENSTRUATION W ITH IRR; irregular menses since of second child TECHNIQUE: Transvaginal (TV). Transvaginal sonographic images were medically necessary to better as sess the following anatomy: Endometrium Date of LMP: 11/11/23 EXAM MEASUREMENTS: Uterus: 9.1x4.9x6.4 cm Endometrial Stripe: 0.8 cm Right Ovary: 2.2x2.3x2.9 cm Left Ovary: 2.9x2.5x2.3 cm 1. Uterus: Anteverted wnl 2. Endometrium: wnl 3. Right Ovary: wnl 4. Left Ovary: wnl 5. Bilateral Adnexa: Obscured by overlying bowel gas 6. Posterior cul-de-sac: wnl Unremarkable anteverted uterus. Endometrium is within normal. Both ovaries demonstrate follicular mercedes nges. No free fluid. IMPRESSION: No ultrasound evidence for an acute process.
== END | disposition home or self-care (01) ==
LOC: RADUSWWP 15:01
PROVIDERS: ATTEND Internal Medicine
DX: N92.1 Excessive and frequent menstruation with irregular cycle (principal)
CPT/HCPCS: 76830

== ENCOUNTER 2024-09-13 16:41 | Emergency (ER) | payer BC ==
[2024-09-13 17:11] VITALS: TEMP 98.4
[2024-09-13] MEDS: IBUPROFEN 800 MG TAB PO STA (17:49)
[2024-09-13] MEDS: ACETAMINOPHEN TAB 500 MG TAB PO STA (17:49)
--- NOTE | 2024-09-13 17:59 | ED ---
Fall HPI - General Chief Complaint: Fall Stated Complaint: left leg pain Time Seen by Provider: 09/13/24 17:17 Source: patient, RN notes reviewed Mode of arrival: wheelchair Limitations: no limitations - History of Present Illness Initial Comments: This is a 33-year-old female who presents to the emergency department for a fall. Patient slipped and fell down 3 steps earlier today and injured her left leg. States that she felt something break in her femur area and she has since had pain going down the leg. States that she has been unable to move her toes or put pressure on the leg since she fell. Denies hitting her head or sustaining any other injuries. MD Complaint: fall - Related Data Home Medications Medication Instructions Recorded Confirmed Acetaminophen [Tylenol] 500 mg PO Q4-6H PRN 05/09/18 05/09/18 Ibuprofen [Motrin] 600 mg PO Q8HR PRN 05/09/18 05/09/18 Previous Rx's Medication Instructions Recorded HYDROcodone/APAP 5-325MG [[place] 1 - 2 tab PO Q6HR PRN #20 tab 05/10/18 5-325] Allergies Allergy/AdvReac Type Severity Reaction Status Date / Time No Known Allergies Allergy Verified 09/13/24 17:11 Review of Systems ROS Statement: Those systems with pertinent positive or pertinent negative responses have been documented in the HPI. ROS Other: All systems not noted in ROS Statement are negative. Past Medical History Past Medical History: No Reported History History of Any Multi-Drug Resistant Organisms: None Reported Past Surgical History: Appendectomy, Cholecystectomy Past Anesthesia/Blood Transfusion Reactions: No Reported Reaction Past Psychological History: No Psychological Hx Reported Smoking Status: Current every day smoker Past Alcohol Use History: None Reported Past Drug Use History: None Reported - Past Family History Mother Family Medical History: Hypertension General Exam Limitations: no limitations General appearance: alert, in no apparent distress Head exam: Present: atraumatic, normocephalic, normal inspection Respiratory exam: Present: normal lung sounds bilaterally. Absent: respiratory distress, wheezes, rales, rhonchi, stridor Cardiovascular Exam: Present: regular rate, normal rhythm Extremities exam: Present: other (Tenderness to palpation of the left femur. Range of motion limited by pain. 2+ DP and PT pulses) Neurological exam: Present: alert, oriented X3, CN II-XII intact Psychiatric exam: Present: normal affect, normal mood Skin exam: Present: warm, dry, intact, normal color. Absent: rash Course Vital Signs 09/13/24 09/13/24 17:08 18:50 Temperature 98.4 F Pulse Rate 91 94 Respiratory 16 18 Rate Blood Pressure 132/84 131/80 O2 Sat by Pulse 100 100 Oximetry Medical Decision Making - Medical Decision Making This is a 33-year-old female who presents to the emergency department for left leg pain. Was pt. sent in by a medical professional or institution? @ -No Did you speak to anyone other than the patient for history? @ -No Did you review nursing and triage notes? @ -Yes, and I agree, it is accurate with regards to the patient's symptoms. Were old charts reviewed? @ -No Differential Diagnosis? @ -Differential Musculoskeletal Muscular strain, contusion, ligament sprain, fracture, arthritis, septic arthritis, bursitis, cellulitis, muscle spasm, nerve compression, DVT, arterial occlusion, herpes zoster, electrolyte abnormality, tumor.... This is not meant to be in all inclusive list EKG interpreted by me (3pts min.)? @ -Not obtained X-rays interpreted by me (1pt min.)? @ -X-ray of the pelvis and left femur obtained. My interpretation of both images identifies no acute fractures. CT interpreted by me (1pt min.)? @ -Not obtained U/S interpreted by me (1pt. min.)? @ -Not obtained What testing was considered but not performed? (CT, X-rays, U/S, labs)? Why? @ -None What meds were considered but not given? Why? @ -None Did you discuss the management of the patient with other professionals? @ -No Did you reconcile home meds? @ -No Was smoking cessation discussed for >3mins.? @ -I discussed smoking cessation for greater than 3 minutes. The risk of smoking were discussed with the patient including but not limited to risks of cancer, stroke, coronary artery disease and COPD. Also discussed with patient were multiple methods of quitting smoking. Lastly we discussed the financial cost of smoking. Was critical care preformed (if so, how long)? @ -No Were there social determinants of health that impacted care today? How? (Homelessness, low income, unemployed, alcoholism, drug addiction, transportation, low edu. Level, literacy, decrease access to med. care, usp, rehab)? @ -No Was there de-escalation of care discussed even if they declined? (Discuss DNR or withdrawal of care, Hospice)? @ -No What co-morbidities impacted this encounter? (DM, HTN, Smoking, COPD, CAD, Cancer, CVA, Hep., AIDS, mental health diagnosis, sleep apnea, morbid obesity)? @ -Smoking Was patient admitted / discharged? @ -Discharged. X-ray of the left femur and pelvis obtained revealing no acute process. Ibuprofen and Tylenol administered for pain control. She did still appear fairly uncomfortable, but declined anything stronger. Knee immobilizer applied for support. She declined the need for crutches. Advised continuing with ibuprofen and Tylenol as needed for pain relief. Patient discharged home in stable condition and advised to follow-up with her PCP or orthopedics. Case discussed with ED attending Dr. Child. Return precautions reviewed in depth, the patient is instructed to return to the emergency department with any new, worsening, or concerning symptoms. Patient verbalized understanding. Undiagnosed new problem with uncertain prognosis? @ -None Drug Therapy requiring intensive monitoring for toxicity (Heparin, Nitro, Insulin, Cardizem)? @ -None Were any procedures done? @ -None Diagnosis/symptom? @ -Fall, left leg pain Acute, or Chronic, or Acute on Chronic? @ -Acute Uncomplicated (without systemic symptoms) or Complicated (systemic symptoms)? @ -Uncomplicated Side effects of treatment? @ -None Exacerbation, Progression, or Severe Exacerbation] @ -Not applicable Poses a threat to life or bodily function? @ -No - Radiology Data Radiology results: report reviewed, image reviewed Disposition Clinical Impression: Fall, Left leg pain, Nicotine dependence Disposition: HOME SELF-CARE Condition: Good Additional Instructions: Return to the emergency department with any new, worsening, or concerning symptoms. Continue to alternate with ibuprofen and Tylenol as needed for pain relief. Apply ice and elevate the leg when seated. Follow up with your primary care provider in 1-2 days. Is patient prescribed a controlled substance at d/c from ED?: No Referrals: Melita John MD [Primary Care Provider] - 1-2 days Time of Disposition: 18:37
--- NOTE | 2024-09-13 18:22 | XR ---
EXAMINATION TYPE: XR pelvis AP view DATE OF EXAM: 09/13/2024 5:48 PM COMPARISON: None available. CLINICAL INDICATION: Female, 33 years old with history of Fall; PHH, pain TECHNIQUE: XR pelvis AP view, examined in a single projection. FINDINGS: There is no evidence of fracture or dislocation. There is no soft tissue abnormality. No a bnormal calcifications are present. The spine appears intact. The hips appear intact. No significant degeneration. IMPRESSION: No acute osseous pathology. [facility], , 09/13/2024 6:20 PM
--- NOTE | 2024-09-13 18:22 | XR ---
EXAMINATION TYPE: XR femur LT DATE OF EXAM: 09/13/2024 5:48 PM COMPARISON: None CLINICAL INDICATION: Female, 33 years old with history of Fall; PHH, pain TECHNIQUE: XR femur LT examined in Frontal and lateral projections. FINDINGS: No evidence of acute osseous pathology, joint dislocation, or soft tissue swelling IMPRESSION: No acute osseous pathology. [facility], , 09/13/2024 6:20 PM
[2024-09-13 18:52] VITALS: BP 131/80; PULSE 94; RESP 18
== END 2024-09-13 19:08 | disposition home or self-care (01) ==
LOC: EC 16:41
DX: M79.605 Pain in left leg (principal); F17.200 Nicotine dependence, unspecified, uncomplicated; W10.9XXA Fall (on) (from) unspecified stairs and steps, initial encounter
CPT/HCPCS: 72170; 99284; 99406